=== PATIENT | female | born 1970 | race African-American/Black ===

== ENCOUNTER 2019-05-25 12:32 | Inpatient (IN) ==
[2019-05-25] MEDS ORDERED: guaiFENesin/CODEINE 5 ML LIQUID PO PRN (15:28)
[2019-05-25] MEDS ORDERED: ONDANSETRON 4 MG/2 ML VIAL IV PRN (15:28)
[2019-05-25] MEDS ORDERED: ALBUTEROL 2.5 MG/3 ML NEB RESP TX PRN (15:28)
[2019-05-25] MEDS ORDERED: ACETAMINOPHEN 325 MG TABLET PO PRN (15:28)
[2019-05-25 16:37] LABS: ABG Base Excess 1.7 MMOL/L (-2.5-2.5); ABG HCO3 25.8 MMOL/L (20-26); ABG PH 7.479 (7.35-7.45); ABG PO2 62.5 MM HG (80-95); ABG TCO2 21.2 MMOL/L (23-27); Allen Test Positive
[2019-05-25] MEDS: POTASSIUM CHLORIDE 20 MEQ TABLET PO SCH ×2 (16:52→21:32)
[2019-05-25] MEDS: PANTOPRAZOLE 40 MG TABLET PO SCH (16:52)
[2019-05-25] MEDS: SODIUM CHLORIDE 0.9% 1,000 ML IV SCH (16:54)
[2019-05-25] MEDS: PIPERACILLIN/TAZOBACTAM 3,375 MG in SODIUM CHLORIDE 0.9% 100 ML IV SCH ×2 (17:08→22:38)
[2019-05-25] MEDS: LEVOFLOXACIN INJ 750 MG in PREMIX 1 EACH IV SCH (17:26)
[2019-05-25] MEDS: ALBUTEROL/IPRATROPIUM 3 ML NEB RESP TX SCH (19:10)
[2019-05-25] MEDS: ENOXAPARIN 40 MG/0.4 ML SYRINGE SUBCUT SCH (21:32)
[2019-05-26] MEDS: ALBUTEROL/IPRATROPIUM 3 ML NEB RESP TX SCH ×4 (00:27→19:29)
[2019-05-26] MEDS: POTASSIUM CHLORIDE 20 MEQ TABLET PO SCH ×6 (00:29→20:42)
[2019-05-26] MEDS: SODIUM CHLORIDE 0.9% 1,000 ML IV SCH ×3 (01:23→16:39)
[2019-05-26] MEDS ORDERED: ZALEPLON 5 MG CAPSULE PO ONE (02:30)
[2019-05-26 03:59] LABS: Basophils % 0.2 % (0.0-0.8); Hemoglobin 11.1 GM/DL (12.0-16.0); Immature Granulocytes % 0.8 %; Immature Granulocytes Absolute 0.14 #; Lymphocytes # 0.5 10*3/uL (1.4-4.0); Lymphocytes % 2.9 % (21.3-54.2); Mean Corpuscular HGB Conc 33.6 GM/DL (32-36); Mean Corpuscular Volume 83.8 FL (87-102); Monocytes % 2.1 % (1.7-12.7); Platelet Count 256 T/CUMM (130-400); Red Blood Count 3.94 MC/CUMM (3.8-5.5); Red Cell Distribution Width 14.3 % (9.3-17.3); White Blood Count 17.9 T/CUMM (4-12)
[2019-05-26 04:06] LABS: INR 3.9
[2019-05-26 04:11] LABS: PT Patient Result 41.7 SECS
[2019-05-26 04:28] LABS: Band Neutrophils 2 % (0-10); Hypochromasia Slight; Lymphocytes 4 % (20-55); Platelet Estimate Adequate; Segmented Neutrophils 92 % (50-85); Total Cells Counted 100
[2019-05-26 04:29] LABS: Polychromasia Few
[2019-05-26 04:36] LABS: Blood Urea Nitrogen 15 MG/DL (7-18); Calcium 7.8 MG/DL (8.5-10.1); Glucose 181 MG/DL (74-106); Osmolality,Calculated 273.2 MOS/KG (273-304); Troponin I < 0.015 NG/ML (0.00-0.045)
[2019-05-26] MEDS: PANTOPRAZOLE 40 MG TABLET PO SCH (08:34)
[2019-05-26] MEDS: PIPERACILLIN/TAZOBACTAM 3,375 MG in SODIUM CHLORIDE 0.9% 100 ML IV SCH ×2 (08:35→16:35)
[2019-05-26] MEDS ORDERED: MAGNESIUM SULF RIDER 2 GM in PREMIX 1 EACH IV ONE (08:38)
[2019-05-26] MEDS: LEVOFLOXACIN INJ 750 MG in PREMIX 1 EACH IV SCH (14:55)
[2019-05-26] MEDS: ENOXAPARIN 40 MG/0.4 ML SYRINGE SUBCUT SCH (20:40)
[2019-05-27] MEDS: SODIUM CHLORIDE 0.9% 1,000 ML IV SCH ×3 (00:25→15:40)
[2019-05-27] MEDS: PIPERACILLIN/TAZOBACTAM 3,375 MG in SODIUM CHLORIDE 0.9% 100 ML IV SCH ×3 (00:25→17:22)
[2019-05-27] MEDS: ALBUTEROL/IPRATROPIUM 3 ML NEB RESP TX SCH ×4 (01:07→18:57)
[2019-05-27 03:45] LABS: Basophils % 0.2 % (0.0-0.8); Hematocrit 33.7 VOL% (35.7-47.0); Hemoglobin 10.6 GM/DL (12.0-16.0); Lymphocytes % 5.1 % (21.3-54.2); Mean Corpuscular HGB Conc 31.5 GM/DL (32-36); Mean Corpuscular Volume 86.6 FL (87-102); Mean Platelet Volume 10.9 FL (9.6-12.0); Monocytes % 5.1 % (1.7-12.7); Neutrophils % 88.6 % (38.7-73.9); Platelet Count 266 T/CUMM (130-400); Red Blood Count 3.89 MC/CUMM (3.8-5.5); Red Cell Distribution Width 15.1 % (9.3-17.3); White Blood Count 19.4 T/CUMM (4-12)
[2019-05-27 03:56] LABS: Calcium 7.9 MG/DL (8.5-10.1); Osmolality,Calculated 279.5 MOS/KG (273-304)
[2019-05-27] MEDS: PANTOPRAZOLE 40 MG TABLET PO SCH (10:09)
[2019-05-27] MEDS: LEVOFLOXACIN INJ 750 MG in PREMIX 1 EACH IV SCH (15:30)
[2019-05-27] MEDS: ALPRAZolam 0.5 MG TABLET PO PRN (20:46)
[2019-05-27] MEDS: ENOXAPARIN 40 MG/0.4 ML SYRINGE SUBCUT SCH (20:46)
[2019-05-28] MEDS: ALBUTEROL/IPRATROPIUM 3 ML NEB RESP TX SCH ×4 (00:33→20:01)
[2019-05-28] MEDS: SODIUM CHLORIDE 0.9% 1,000 ML IV SCH ×2 (00:37→18:30)
[2019-05-28] MEDS: PIPERACILLIN/TAZOBACTAM 3,375 MG in SODIUM CHLORIDE 0.9% 100 ML IV SCH ×2 (00:38→11:03)
[2019-05-28 05:42] LABS: Basophils % 0.1 % (0.0-0.8); Eosinophils # 0.1 10*3/uL (0.0-0.87); Eosinophils % 0.7 % (0.00-10.9); Hematocrit 33.5 VOL% (35.7-47.0); Immature Granulocytes % 2.1 %; Immature Granulocytes Absolute 0.31 #; Lymphocytes # 2.2 10*3/uL (1.4-4.0); Lymphocytes % 14.5 % (21.3-54.2); Mean Corpuscular HGB Conc 32.8 GM/DL (32-36); Mean Corpuscular Volume 84.6 FL (87-102); Monocytes % 5.8 % (1.7-12.7); NRBC # 0.03 10*3/uL; Neutrophils % 76.8 % (38.7-73.9); Platelet Count 338 T/CUMM (130-400); Red Blood Count 3.96 MC/CUMM (3.8-5.5); White Blood Count 14.9 T/CUMM (4-12)
[2019-05-28 05:59] LABS: Calcium 8.4 MG/DL (8.5-10.1)
[2019-05-28 08:11] LABS: Risk Ratio 7.64; VLDL CHOLESTEROL 34.8 MG/DL
[2019-05-28] MEDS ORDERED: NICOTINE 14 MG/24 HR PATCH TRANSDERM PRN (09:00)
[2019-05-28] MEDS ORDERED: POTASSIUM CHLORIDE 20 MEQ TABLET PO ONE (09:00)
[2019-05-28] MEDS: ASPIRIN CHEW 81 MG TABLET PO SCH (09:56)
[2019-05-28] MEDS: PANTOPRAZOLE 40 MG TABLET PO SCH (09:56)
[2019-05-28] MEDS: LEVOFLOXACIN INJ 750 MG in PREMIX 1 EACH IV SCH (09:56)
[2019-05-28] MEDS: ENOXAPARIN 40 MG/0.4 ML SYRINGE SUBCUT SCH (20:53)
[2019-05-29] MEDS: ALBUTEROL/IPRATROPIUM 3 ML NEB RESP TX SCH ×4 (00:30→19:03)
[2019-05-29 06:23] LABS: Basophils # 0.1 10*3/uL (0.0-0.2); Basophils % 0.4 % (0.0-0.8); Eosinophils # 0.2 10*3/uL (0.0-0.87); Eosinophils % 1.2 % (0.00-10.9); Hematocrit 31.4 VOL% (35.7-47.0); Hemoglobin 10.2 GM/DL (12.0-16.0); Immature Granulocytes % 4.8 %; Immature Granulocytes Absolute 0.68 #; Lymphocytes # 2.5 10*3/uL (1.4-4.0); Lymphocytes % 17.5 % (21.3-54.2); Mean Corpuscular HGB Conc 32.5 GM/DL (32-36); Mean Corpuscular Volume 84.6 FL (87-102); Mean Platelet Volume 10.9 FL (9.6-12.0); Monocytes % 8.1 % (1.7-12.7); NRBC # 0.05 10*3/uL; Platelet Count 373 T/CUMM (130-400); Red Blood Count 3.71 MC/CUMM (3.8-5.5); Red Cell Distribution Width 15.3 % (9.3-17.3); White Blood Count 14.2 T/CUMM (4-12)
[2019-05-29 06:39] LABS: Calcium 8.8 MG/DL (8.5-10.1); Osmolality,Calculated 272.7 MOS/KG (273-304)
[2019-05-29 06:41] LABS: Calcium 8.3 MG/DL (8.5-10.1); Osmolality,Calculated 274.5 MOS/KG (273-304)
[2019-05-29 06:56] LABS: Eosinophils 2 % (0-10); Lymphocytes 31 % (20-55); Platelet Estimate Normal; Polychromasia Few; Segmented Neutrophils 64 % (50-85); Total Cells Counted 100
[2019-05-29] MEDS: SODIUM CHLORIDE 0.9% 1,000 ML IV SCH ×2 (07:00→23:47)
[2019-05-29 08:48] LABS: INR 3.5
[2019-05-29 08:49] LABS: PT Patient Result 37.8 SECS
[2019-05-29] MEDS: LEVOFLOXACIN INJ 750 MG in PREMIX 1 EACH IV SCH (09:15)
[2019-05-29] MEDS: ASPIRIN CHEW 81 MG TABLET PO SCH (09:15)
[2019-05-29] MEDS: PANTOPRAZOLE 40 MG TABLET PO SCH (09:15)
[2019-05-29] MEDS ORDERED: POTASSIUM CHLORIDE 20 MEQ TABLET PO ONE (11:30)
[2019-05-29] MEDS: SPIRONOLACTONE 25 MG TABLET PO SCH (16:43)
[2019-05-29] MEDS: DULoxetine 30 MG CAPSULE PO SCH (16:43)
[2019-05-29] MEDS: CETIRIZINE 10 MG TABLET PO SCH (16:44)
[2019-05-29] MEDS: POTASSIUM CHLORIDE 10 MEQ TABLET PO SCH (16:47)
[2019-05-29] MEDS: METOPROLOL TARTRATE 25 MG TABLET PO SCH (16:50)
[2019-05-29] MEDS: amLODIPine 10 MG TABLET PO SCH (16:51)
[2019-05-29] MEDS: GABAPENTIN 300 MG CAPSULE PO SCH (20:28)
[2019-05-29] MEDS: ALPRAZolam 0.5 MG TABLET PO PRN (20:28)
[2019-05-29] MEDS ORDERED: SIMVASTATIN 20 MG TABLET PO SCH (21:00)
[2019-05-30 04:49] LABS: Calcium 8.5 MG/DL (8.5-10.1); Osmolality,Calculated 272.8 MOS/KG (273-304)
[2019-05-30 05:22] LABS: INR 2.4
[2019-05-30 06:18] LABS: PT Patient Result 25.6 SECS
[2019-05-30 07:25] LABS: Basophils # 0.1 10*3/uL (0.0-0.2); Basophils % 0.3 % (0.0-0.8); Eosinophils # 0.2 10*3/uL (0.0-0.87); Eosinophils % 1.6 % (0.00-10.9); Hematocrit 30.7 VOL% (35.7-47.0); Hemoglobin 9.8 GM/DL (12.0-16.0); Immature Granulocytes % 5.8 %; Immature Granulocytes Absolute 0.85 #; Lymphocytes # 2.5 10*3/uL (1.4-4.0); Lymphocytes % 17.2 % (21.3-54.2); Mean Corpuscular HGB Conc 31.9 GM/DL (32-36); Mean Corpuscular Volume 87.7 FL (87-102); Mean Platelet Volume 10.6 FL (9.6-12.0); NRBC # 0.04 10*3/uL; Neutrophils % 66.1 % (38.7-73.9); Platelet Count 382 T/CUMM (130-400); Red Cell Distribution Width 15.9 % (9.3-17.3); White Blood Count 14.7 T/CUMM (4-12)
[2019-05-30] MEDS: ALBUTEROL/IPRATROPIUM 3 ML NEB RESP TX SCH ×2 (07:33)
[2019-05-30 08:08] LABS: Lymphocytes 16 % (20-55); Metamyelocytes 1 %; Myelocytes 1 %; Segmented Neutrophils 77 % (50-85); Total Cells Counted 100
[2019-05-30 08:09] LABS: Hypochromasia 1+; Microcytosis 1+; Platelet Estimate Normal
[2019-05-30] MEDS ORDERED: LEVOFLOXACIN 750 MG TABLET PO SCH (09:00)
[2019-05-30] MEDS: METOPROLOL TARTRATE 25 MG TABLET PO SCH ×2 (09:08→10:31)
[2019-05-30] MEDS: SPIRONOLACTONE 25 MG TABLET PO SCH (09:09)
[2019-05-30] MEDS: PANTOPRAZOLE 40 MG TABLET PO SCH (09:09)
[2019-05-30] MEDS: ASPIRIN CHEW 81 MG TABLET PO SCH (09:09)
[2019-05-30] MEDS: POTASSIUM CHLORIDE 10 MEQ TABLET PO SCH (09:09)
[2019-05-30] MEDS: CETIRIZINE 10 MG TABLET PO SCH (09:09)
[2019-05-30] MEDS: DULoxetine 30 MG CAPSULE PO SCH (09:09)
[2019-05-30] MEDS: GABAPENTIN 300 MG CAPSULE PO SCH (09:10)
[2019-05-30] MEDS: amLODIPine 10 MG TABLET PO SCH (09:10)
[2019-05-30 12:50] VITALS: BP 115/60
== END 2019-05-30 13:24 | disposition swing bed (61) | DRG 193 ==
LOC: N.CC 15:01 → SUATTDRO 15:01 → N.ICU 16:32 → N.2E 05-27 12:14
PROVIDERS: ADMIT Internal Medicine; ATTEND Internal Medicine